=== PATIENT | male | born 1970 | race Caucasian/White ===

== ENCOUNTER 2023-11-01 23:02 | Emergency (ER) | payer OTHER ==
[~2023-11-01] VITALS: Ht 182.9 cm; Wt 106.6 kg
[2023-11-01 23:16] VITALS: BP 199/98; PULSE 97; RESP 16; TEMP 98; O2SAT 97
[2023-11-01 23:59] LABS: BASOPHILS # (AUTO) 0.1 K/uL (0.00-0.22); BASOPHILS % (AUTO) 0.8 % (0.0-2.0); EOSINOPHILS # (AUTO) 0.2 K/uL (0-0.4); EOSINOPHILS % (AUTO) 3.1 % (0.0-4.0); HEMATOCRIT 43.1 % (36-52); LYMPHOCYTES # (AUTO) 3.2 K/uL (2.0-11.5); LYMPHOCYTES % (AUTO) 42.8 % (20.5-51.1); MEAN CORPUSCULAR HEMOGLOBIN 28 pg (27-31); MEAN CORPUSCULAR HGB CONC 35 g/dL (33-37); MEAN CORPUSCULAR VOLUME 79.4 fL (80-94); MONOCYTES # (AUTO) 0.3 K/uL (0.8-1.0); MONOCYTES % (AUTO) 4.2 % (1.7-9.3); NEUTROPHILS # (AUTO) 3.6 K/uL (1.8-7.7); NEUTROPHILS % (AUTO) 49.1 % (42.2-75.2); PLATELET COUNT (AUTO) 235 K/uL (140-450); RED BLOOD CELL COUNT(AUTO) 5.42 MIL/uL (4.20-6.10); RED CELL DISTRIBUTION WIDTH 14.3 % (11.6-13.7); WHITE BLOOD COUNT (AUTO) 7.4 K/uL (4.8-10.8)
[2023-11-02] MEDS: ACETAMINOPHEN EXTRA STRENGTH 500 MG TAB PO ONE (00:17)
[2023-11-02] MEDS: KETOROLAC 30 MG/ML VIAL IVP ONE (00:18)
[2023-11-02 00:31] LABS: INR 1.38 (0.8-1.2); PARTIAL THROMBOPLASTIN TIME 26.7 secs (22-35.6); PROTHROMBIN TIME 14.3 secs (10.8-13.4)
[2023-11-02 00:42] LABS: CALCIUM 8.9 mg/dL (8.5-10.1); CARBON DIOXIDE 29.6 mmol/L (21-32); CREATININE 1.4 mg/dL (0.6-1.3)
[2023-11-02 00:44] LABS: ANION GAP 13.2 (8-16); POTASSIUM 2.8 mmol/L (3.5-5.1)
[2023-11-02 01:31] VITALS: BP 156/89; PULSE 97; RESP 16; TEMP 98; O2SAT 98
[2023-11-02] MEDS: POTASSIUM CHLORIDE 10 MEQ TABER PO ONE (01:44)
[2023-11-02] MEDS: KCL 20 MEQ IN 100 mL PREMIX 100 ML IV ONE (01:45)
== END 2023-11-02 04:07 | disposition home or self-care (01) ==
LOC: MED 23:02
DX: I10 Essential (primary) hypertension (principal); E87.6 Hypokalemia
CPT/HCPCS: 36415; 71045; 80048; 83880; 84484; 85025; 85610; 85730; 96365; 96366; 96375; 99284; J1885; J3480; 96361; 96374